=== PATIENT | female | born 1950 | race African-American/Black ===

== ENCOUNTER 2020-11-06 00:13 | Emergency (ER) | payer BC ==
[~2020-11-06] VITALS: Ht 170.2 cm; Wt 76.0 kg
[2020-11-06 02:32] LABS: BASOPHILS % 0.4 % (0.0-2.0); EOSINOPHILS % 1.9 % (0.0-5.0); HEMATOCRIT. 36.3 % (36.0-48.0); HEMOGLOBIN. 11.6 g/dL (12.0-16.0); LYMPHOCYTES % 29.3 % (20.0-50.0); MEAN CORPUSCULAR HEMOGLOBIN 24.8 pg (28.0-32.0); MEAN CORPUSCULAR VOLUME 77.3 fL (81.0-99.0); MEAN PLATELET VOLUME 8.9 fl (7.4-10.4); MONOCYTES % 11.3 % (2.0-8.0); NEUTROPHILS % 57.1 % (40.0-76.0); PLATELET 256 x1000/uL (130-400); RED BLOOD CELL COUNT 4.69 mill/uL (4.2-5.4); RED CELL DISTRIBUTION WIDTH 16.3 % (11.6-14.6)
[2020-11-06 02:38] LABS: CHLORIDE 109 mEq/L (98-107)
[2020-11-06 04:00] VITALS: BP 142/72
[2020-11-06] MEDS ORDERED: APIX5TAB MT (04:12)
== END 2020-11-06 04:37 | disposition home or self-care (01) ==
LOC: ER 00:13
DX: I82.401 Acute embolism and thrombosis of unspecified deep veins of right lower extremity (principal); M06.9 Rheumatoid arthritis, unspecified
CPT/HCPCS: 36415; 73600; 73620; 80053; 85025; 93005; 93971; 99285